=== PATIENT | female | born 1935 | race Caucasian/White ===

== ENCOUNTER → 2018-04-06 14:34 | Outpatient (CLI) | payer MEDICARE, OTHER ==
[2015-03-13 11:37] VITALS: BMI 25.8
[~2018-04-06 14:34] MED LIST: ATIVAN0.5 MG PO; CARDIZEM CD300 MG PO; DEXILANT60 MG PO; LASIX40 MG PO; NOLVADEX10 M1 PO; PLAVIX75 MG PO; SOMA350 MG PO; VENTOLIN HFA18 GM INH; ZOCOR20 MG PO
== END | disposition home or self-care (01) ==
LOC: D.MRI 14:34
DX: G44.52 New daily persistent headache (NDPH) (principal)

== ENCOUNTER 2018-12-29 19:00 | Outpatient (CLI) | payer MEDICARE, OTHER ==
[2015-03-13 11:37] VITALS: BMI 25.8
== END 2018-12-29 23:59 | disposition home or self-care (01) ==
LOC: D.MAMMO 19:00
PROVIDERS: ATTEND Family Medicine Adult Medicine
DX: N64.4 Mastodynia (principal)

== ENCOUNTER → 2019-09-01 06:59 | Outpatient (CLI) | payer MEDICARE, OTHER ==
[2015-03-13 11:37] VITALS: BMI 25.8
== END | disposition home or self-care (01) ==
LOC: D.RAD 08-30 14:30 → D.RT 08-30 15:00 → D.RAD 06:59
PROVIDERS: ATTEND Internal Medicine Pulmonary Disease
DX: Z82.5 Family history of asthma and other chronic lower respiratory diseases (principal)

== ENCOUNTER → 2020-12-29 13:39 | Outpatient (CLI) | payer MEDICARE, OTHER ==
[2015-03-13 11:37] VITALS: BMI 25.8
== END | disposition home or self-care (01) ==
LOC: D.RT 13:39
PROVIDERS: ATTEND Internal Medicine Pulmonary Disease
DX: J44.9 Chronic obstructive pulmonary disease, unspecified (principal); Z11.52 Encounter for screening for COVID-19

== ENCOUNTER → 2021-03-15 13:05 | Outpatient (CLI) | payer MEDICARE, OTHER ==
[2015-03-13 11:37] VITALS: BMI 25.8
== END | disposition home or self-care (01) ==
LOC: D.CT 13:00
PROVIDERS: ATTEND Internal Medicine Pulmonary Disease
DX: J98.4 Other disorders of lung (principal)